=== PATIENT | female | born 1970 | race Hispanic/Latino ===

== ENCOUNTER 2018-01-16 08:10 | Day surgery (SDC) | payer MEDICAID, OTHER ==
[~2018-01-16 08:10] MED LIST: WATER FOR IRRIG STERILE IR ONE
[2018-01-16] MEDS ORDERED: ANCEF/STERILE WATER 2 GM/20 ML IV NR (09:14)
[2018-01-16] MEDS ORDERED: FLAGYL 500 MG/100 ML 500 MG/100 ML BAG IV NR (09:16)
[2018-01-16] MEDS ORDERED: XYLOCAINE 1% 20 mL ONE (09:21)
[2018-01-16] MEDS ORDERED: MARCAINE 0.25% INFILTRATI ONE ×2 (09:22→10:49)
[2018-01-16] MEDS ORDERED: ZOFRAN ONE (09:24)
[2018-01-16] MEDS ORDERED: XYLOCAINE CARDIAC IV ONE (09:24)
[2018-01-16] MEDS ORDERED: SUBLIMAZE ONE (09:24)
[2018-01-16] MEDS ORDERED: DIPRIVAN 10 MG/ML IV ONE (09:24)
[2018-01-16] MEDS ORDERED: VERSED ONE (09:25)
--- NOTE | 2018-01-16 09:30 | Anesthesia Consultation ---
Anesthesia Consult and Med Hx - Airway Anesthetic Teeth Evaluation: Good Mallampati Class: Class II Intubation Access Assessment: Good - Pulmonary Exam CTA: Yes - Cardiac Exam Cardiac Exam: RRR - Pre-Operative Health Status ASA Pre-Surgery Classification: ASA2 Proposed Anesthetic Plan: General - Pulmonary Hx Smoking: Yes (1/2 PPD SINCE 13 YEARS OLD, ) Hx Asthma: No Hx Respiratory Symptoms: No SOB: No COPD: No Home Oxygen Therapy: No Hx Pneumonia: No Hx Sleep Apnea: No - Cardiovascular System Hx Hypertension: No Hx Coronary Artery Disease: No Hx Heart Attack/AMI: No Hx Angina: No Hx Percutaneous Transluminal Coronary Angioplasty (PTCA): No Hx Cardia Arrhythmia: No Hx Pacemaker: No Hx Internal Defibrillator: No Hx Valvular Heart Disease: No Hx Heart Murmur: No Hx Peripheral Vascular Disease: No - Central Nervous System Hx Psychiatric Problems: No - Gastrointestinal Hx Ulcer: Yes Hx Gastroesophageal Reflux Disease: No - Endocrine Hx Renal Disease: No Hx End Stage Renal Disease: No Hx Cirrhosis: No Hx Liver Disease: No Hx Insulin Dependent Diabetes: No Hx Non-Insulin Dependent Diabetes: No Hx Thyroid Disease: No Hx Hypothyroidism: No Hx Hyperthyroidism: No - Hematic Hx Anemia: No Hx Sickle Cell Disease: No - Other Systems Hx Alcohol Use: No Hx Substance Use: No Hx Cancer: Yes Hx Obesity: No - Additional Comments Anesthesia Medical History Comments: chronic pain on methadone, last dose yesterday
[2018-01-16] MEDS ORDERED: DILAUDID IV PRN (09:37)
[2018-01-16] MEDS ORDERED: LACTATED RINGERS 1,000 ML IV SCH ×2 (10:00)
[2018-01-16] MEDS ORDERED: PEPCID IV NR (10:00)
[2018-01-16] MEDS ORDERED: VERSED IV NR (10:00)
[2018-01-16] MEDS ORDERED: ZOFRAN IV PRN (10:30)
[2018-01-16] MEDS ORDERED: XYLOCAINE 1% 20 mL INFILTRATI ONE (10:49)
[2018-01-16] MEDS ORDERED: ePHEDrine SULFATE ONE (10:54)
[2018-01-16] MEDS ORDERED: WATER FOR IRRIG STERILE IR ONE (11:45)
--- NOTE | 2018-01-16 12:12 | Short Stay Summary ---
Short Stay Documentation Date of service: 01/16/18 - History H&P: obtained from office - Allergies and Medications Current Medications: Allergies codeine Allergy (Verified 01/09/18 14:12) Hives haloperidol [From Haldol] Allergy (Verified 01/09/18 14:12) lock jaw Sulfa (Sulfonamide Antibiotics) Allergy (Verified 01/09/18 14:12) Anaphylaxis Home Medications Medication Instructions Recorded Confirmed Last Taken Type Methadone [Dolophine] 110 mg PO DAILY 01/09/18 01/16/18 01/16/18 History Ibuprofen 800 mg PO Q8HR PRN #20 tablet 01/16/18 Unknown Rx Active Medications Cefazolin Sodium (Ancef/Sterile Water 2 Gm/20 Ml) 2 gm IV PREOP NR Stop: 01/16/18 23:59 Hydromorphone HCl (Dilaudid) 0.5 mg IV Q10MIN PRN PRN Reason: Pain , Severe (7-10) Stop: 01/16/18 13:00 Lactated Ringer's (Lactated Ringers) 1,000 mls @ 75 mls/hr IV DIRECT DOMINIC Midazolam HCl (Versed) 2 mg IV PREOP NR Stop: 01/16/18 23:59 Last Admin: 01/16/18 10:05 Dose: 2 mg Ondansetron HCl (Zofran) 4 mg IV ONCE PRN PRN Reason: Nausea And Vomiting - Brief post op/procedure progress note Date of procedure: 01/16/18 Pre-op diagnosis: Left spontaneous clear nipple discharge Post-op diagnosis: same Procedure: Left nipple terminal duct excisional biopsy Anesthesia: GETA Findings: Left clear nipple discharge at 3:00 position with duct dissected free Surgeon: YURIDIA CHANG Estimated blood loss: minimal Pathology: list (left nipple terminal duct) Specimen disposition: to lab Condition: stable - Disposition Condition at discharge: Good Disposition: DC- TO HOME OR SELFCARE Short Stay Discharge Plan Activity: other (no heavy lifting) Diet: regular Wound: other (keep incision clean and dry; may shower in 24 hours; do not rub or scrub incision; no baths, pools or lakes) Follow up with: MAGO LIMA MD [Primary Care Provider] - 7 Days YURIDIA CHANG MD [Staff Physician] - 7 Days Prescriptions: Ibuprofen 800 mg PO Q8HR PRN #20 tablet PRN Reason: Pain
--- NOTE | 2018-01-16 12:28 | Operative Report ---
Operative Report Operative Report: Date of Service: January 16, 2018 Preoperative diagnosis: Left spontaneous clear nipple discharge Postoperative diagnosis: Same Procedure: Left nipple terminal duct excisonal biopsy Surgeon: Sandy Pratt MD Anesthesia: General Findings: Left clear nipple discharge at the 3:00 position, duct identified and dissected free Complications: None EBL: Minimal Disposition: PACU in good condition Indications for operative procedure: This is a 47-year-old lady recently seen in consultation for evaluation for spontaneous left clear nipple discharge. Recommendations were to proceed with left nipple terminal duct excision biopsy to rule out malignancy. Diagnostic workup prior to surgery was obtained to include mammogram, ultrasound and galactogram; no filling defect identified. Patient wished to proceed with the above procedure. Procedure in detail: The patient was taken to the operating room. Gen. anesthesia was administered. The left breast was prepped and draped in the normal sterile operative fashion. Timeout was performed. Clear nipple discharge was noted at the 3 o'clock position of the left nipple. Lacrimal probe was inserted at the ductal of concern. A lateral periareolar incision was made with a 15 blade knife and dissection taken down to the subcutaneous tissues. First began with dissection of breast tissue from the posterior aspect of the nipple. The lacrimal probe was identifed in the duct of concern and the duct was dissected free and dissection taken down posteriorly to 3-4 cm. The ductal of concern was appropriately removed and marked and sent to pathology. No palpable masses were noted. The breast cavity was anesthetized with 1% lidocaine mixed with quarter percent Marcaine. Hemostasis was obtained with the bovie cautery. The deep breast tissues were approximated and closed using interrupted 3-0 Vicryl, the subcutaneous tissues were approximated and closes using 3-0 Vicryl and the skin closed using a running 4-0 Monocryl followed by skin affix. She tolerated surgery very well and was awaken from anesthesia without any complications and transported to PACU in good condition.
[2018-01-16] MEDS ORDERED: NORCO 10/325 PO SCH (13:27)
[2018-01-16] MEDS ORDERED: NORCO 5/325 PO SCH (13:36)
[2018-01-16 17:01] VITALS: BP 105/66
== END 2018-01-16 14:45 | disposition home or self-care (01) ==
LOC: OR 08:10
PROVIDERS: ATTEND Surgery
DX: N64.52 Nipple discharge (principal); F17.210 Nicotine dependence, cigarettes, uncomplicated; Z88.5 Allergy status to narcotic agent; Z88.2 Allergy status to sulfonamides; Z88.8 Allergy status to other drugs, medicaments and biological substances
CPT/HCPCS: 19120; 88307; J0690; J2001; J2250; J2405; J2704; J3010; J7120